=== PATIENT | female | born 1995 | race Caucasian/White ===

== ENCOUNTER 2016-08-12 02:30 | Emergency (ER) | payer OTHER ==
[2016-08-12] MEDS ORDERED: fentaNYL 100 MCG/2 ML INJ IVP ONE (02:45)
--- NOTE | 2016-08-12 02:55 | EDPHY ---
H & P Time Seen by Provider: 08/12/16 02:47 HPI/ROS: HPI Left shoulder pain. Left hip pain. 20-year-old female by private vehicle with her boyfriend. She reports that for the last week she has had spontaneous episodes of joint pain. Described as being in both hips, both shoulders, her knees and her elbows. She reports that tonight her left shoulder and her left hip have been bothering her. She describes the pain as sharp and intense and sudden-onset then it dies down to a dull ache and then subsides and then repeats. She denies any history of trauma. She does not have any history of autoimmune disease. She denies camping or being in the bush and possible tick exposure. No fever. She has a appointment with her primary care physician at [facility] tomorrow regarding this complaint. ROS: Constitutional: No fever, no chills. No weakness. Eyes: No discharge. No changes in vision. ENT: No sore throat. No nasal congestion or rhinorrhea. Respiratory: No cough. No shortness of breath. Cardiac: No chest pain, no palpitations. Gastrointestinal: No abdominal pain, no vomiting, no diarrhea. Genitourinary: No hematuria. No dysuria or increased frequency with urination. Musculoskeletal: No back pain. No neck pain. As above. Skin: No rashes. Neurological: No headache. No focal weakness or altered sensation. Past medical history: Panic attacks for which she takes alprazolam. Exercise- induced asthma, tonsillectomy, yeast infection. Primary care is through [facility]. Social history: Here with her boyfriend. No alcohol. She denies smoking. Physical Exam: General Appearance: Alert, emotionally labile. This patient is responding to questions appropriately and in full sentences. This patient appears well- hydrated and well-nourished. Eyes: Pupils equal and round no pallor or injection. No lid edema, erythema or injection. Respiratory: There are no retractions, lungs are clear to auscultation with good air movement bilaterally. Cardiovascular: Regular rate and rhythm. No murmur. Gastrointestinal: Abdomen is soft and nontender, no masses, bowel sounds normal. No focal tenderness at McBurney's point. No Charles sign. Neurological: Motor sensory function is grossly intact. Cranial nerves are normal. Gait is normal. Skin: Warm and dry, no rashes. No areas of erythema or warmth. No areas of ecchymosis. Musculoskeletal: Neck is supple and nontender. No midline cervical, thoracic, lumbar sacral tenderness on palpation. All joints in the right lower extremity and right upper extremity range without any pain or impingement. There is no pain elicited on axial compression of the long bones in the right upper and lower extremity. Examination of the left shoulder. She describes having some pain on the lateral aspect of the left shoulder which is mild and vague with AB duction. The glenohumeral joint integrity is intact. Left upper extremity is neurovascularly intact. There are no soft tissue changes on inspection of her shoulder. The left hip is significant for pain with passive and active flexion and extension. There is no pain on axial compression of the left hip. The left lower extremity is neurovascularly intact. Extremities are symmetrical. All joints range without pain or impingement. Psychiatric: No agitation. No depression. Database: EKG: Imaging: Left hip with AP pelvis x-ray: Negative for fracture, subluxation, dislocation. Interpreted by me. Procedures: Emergency department course: IV placed. She is asking for pain medication. She will be given 100 mcg of IV fentanyl initially. After verification of a normal creatinine. We will give her 30 mg of IV Toradol. Appropriate blood work sent. 3:15 a.m., patient re-evaluated. Comfortable at this time. No pain in ranging the left hip in flexion and extension or with axial compression. 3:45 a.m., lab work reviewed. Unremarkable. Patient reports that her pain is better but she is still having some pain. Normal creatinine. No contraindications to NSAIDs. She was given 30 mg of IV Toradol. 4:30 a.m., patient denies any significant pain. She is able to ambulate without difficulty. I feel that septic joint, tick-borne illness, traumatic injury, gout, pseudogout, spondyloarthropathy are unlikely. She feels comfortable going home and I feel she is safe for discharge. She will follow up with her primary care physician for re-evaluation tomorrow as scheduled. Return to emergency department precautions reviewed. All of her questions were answered. She was discharged from the emergency department with her boyfriend in good condition. Differential Diagnosis: The differential diagnosis on this patient includes but is not limited to psychosomatic disorder, panic attack, spondyloarthropathy, Lyme disease, other tick-borne illness, osteoarthritis. Traumatic injury unlikely. Septic joint. Monoarticular arthritis such as pseudogout gout unlikely. This represents a partial list of diagnoses considered. These considerations are based on history , physical exam, past history, reassessment and diagnostic testing. Smoking Status: Never smoked Constitutional: Initial Vital Signs Temperature (C) 36.8 C 08/12/16 02:42 Heart Rate 92 08/12/16 02:42 Respiratory Rate 16 08/12/16 02:42 Blood Pressure 134/63 H 08/12/16 02:42 O2 Sat (%) 100 08/12/16 02:42 O2 Delivery Mode Room Air O2 (L/minute) 2 Allergies/Adverse Reactions: cephalexin monohydrate [From Keflex] Allergy (Verified 08/12/16 02:41) guaifenesin [From Mucinex] Allergy (Verified 08/12/16 02:41) Penicillins Allergy (Verified 08/12/16 02:41) pseudoephedrine HCl [From Sudafed] Allergy (Verified 08/12/16 02:41) Home Medications: Medication Instructions Recorded Albuterol 5 mg/ml INH 09/20/15 MIRENA 09/20/15 Alprazolam 08/12/16 Monostat 08/12/16 Medical Decision Making - Data Points Laboratory Results: Laboratory Results 08/12/16 02:52 08/12/16 02:52 08/12/16 08/12/16 08/12/16 02:52 02:52 02:52 WBC RBC Hgb Hct MCV MCH MCHC RDW Plt Count MPV Neut % (Auto) Lymph % (Auto) [place] % (Auto) Eos % (Auto) Baso % (Auto) Nucleat RBC Rel Count Absolute Neuts (auto) Absolute Lymphs (auto) Absolute Monos (auto) Absolute Eos (auto) Absolute Basos (auto) Absolute Nucleated RBC Immature Gran % Immature Gran # ESR Sodium 139 mEq/L mEq/L (134-144) Potassium 3.7 mEq/L mEq/L (3.5-5.2) Chloride 107 mEq/L mEq/L (97-110) Carbon Dioxide 19 mEq/l L mEq/l (22-31) Anion Gap 13 mEq/L mEq/L (8-16) BUN 14 mg/dL mg/dL (7-23) Creatinine 0.8 mg/dL mg/dL (0.6-1.0) Estimated GFR > 60 Glucose 87 mg/dL mg/dL (70-100) Calcium 10.0 mg/dL mg/dL (8.5-10.4) C-Reactive Protein < 5.0 mg/L mg/L (<10.0) Beta HCG, Qual Pending Lyme Total Antibody Pending 08/12/16 02:52 WBC 7.92 10^3/uL 10^3/uL (3.80-9.50) RBC 4.73 10^6/uL 10^6/uL (4.18-5.33) Hgb 14.6 g/dL g/dL (12.6-16.3) Hct 41.1 % % (38.0-47.0) MCV 86.9 fL fL (81.5-99.8) MCH 30.9 pg pg (27.9-34.1) MCHC 35.5 g/dL g/dL (32.4-36.7) RDW 12.6 % % (11.5-15.2) Plt Count 256 10^3/uL 10^3/uL (150-400) MPV 11.5 fL fL (8.7-11.7) Neut % (Auto) 40.2 % % (39.3-74.2) Lymph % (Auto) 47.1 % H % (15.0-45.0) [place] % (Auto) 7.2 % % (4.5-13.0) Eos % (Auto) 4.4 % % (0.6-7.6) Baso % (Auto) 1.0 % % (0.3-1.7) Nucleat RBC Rel Count 0.0 % % (0.0-0.2) Absolute Neuts (auto) 3.18 10^3/uL 10^3/uL (1.70-6.50) Absolute Lymphs (auto) 3.73 10^3/uL H 10^3/uL (1.00-3.00) Absolute Monos (auto) 0.57 10^3/uL 10^3/uL (0.30-0.80) Absolute Eos (auto) 0.35 10^3/uL 10^3/uL (0.03-0.40) Absolute Basos (auto) 0.08 10^3/uL 10^3/uL (0.02-0.10) Absolute Nucleated RBC 0.00 10^3/uL 10^3/uL (0-0.01) Immature Gran % 0.1 % % (0.0-1.1) Immature Gran # 0.01 10^3/uL 10^3/uL (0.00-0.10) ESR Pending Sodium Potassium Chloride Carbon Dioxide Anion Gap BUN Creatinine Estimated GFR Glucose Calcium C-Reactive Protein Beta HCG, Qual Lyme Total Antibody Medications Given: Discontinued Medications Fentanyl (Sublimaze) 100 mcg IVP EDNOW ONE Stop: 08/12/16 02:46 Last Admin: 08/12/16 02:57 Dose: 100 mcg Departure - Departure Disposition: Home, Routine, Self-Care Clinical Impression: Joint pain, Left hip pain, Left shoulder pain Condition: Good Instructions: Hip Pain (ED), Arthralgia (ED) Additional Instructions: Read and follow provided instructions. Follow-up with your primary care physician as scheduled tomorrow for re- evaluation. Ibuprofen dosin mg every 6 hours with meals for the next 3 days only. Do not take until after 5:00 p.m. today. Return to the emergency department for worsening symptoms, fever or other serious concerns. Referrals: Radha Cancino MD [Primary Care Provider] - As per Instructions
[2016-08-12 03:29] LABS: % IMMATURE GRANULYOCYTES 0.1 % (0.0-1.1); ABSOLUTE IMMATURE GRANULOCYTES 0.01 10^3/uL (0.00-0.10); ADD DIFF? NO; ADD MORPH? NO; ADD SCAN? NO; ATYPICAL LYMPHOCYTE FLAG 0 (0-99); FRAGMENT RBC FLAG 0 (0-99); HEMATOCRIT 41.1 % (38.0-47.0); HEMOGLOBIN 14.6 g/dL (12.6-16.3); LEFT SHIFT FLG 0 (0-99); LIPEMIA HEMOLYSIS FLAG 90 (0-99); MEAN CELL HEMOGLOBIN 30.9 pg (27.9-34.1); MEAN CELL HEMOGLOBIN CONCENTR. 35.5 g/dL (32.4-36.7); MEAN CELL VOLUME 86.9 fL (81.5-99.8); MEAN PLATELET VOLUME 11.5 fL (8.7-11.7); PLATELET CLUMPS FLAG 10 (0-99); PLATELET COUNT 256 10^3/uL (150-400); RED BLOOD CELL COUNT 4.73 10^6/uL (4.18-5.33); RED CELL DISTRIBUTION WIDTH 12.6 % (11.5-15.2)
[2016-08-12 03:42] LABS: ANION GAP 13 mEq/L (8-16); C-REACTIVE PROTEIN < 5.0 mg/L (<10.0); CARBON DIOXIDE 19 mEq/l (22-31); CHLORIDE 107 mEq/L (97-110); CREATININE 0.8 mg/dL (0.6-1.0); GLOMERULAR FILTRATION RATE > 60; GLUCOSE 87 mg/dL (70-100); POTASSIUM 3.7 mEq/L (3.5-5.2); SODIUM 139 mEq/L (134-144)
[2016-08-12] MEDS ORDERED: KETOROLAC 30 MG/1 ML SDV IVP ONE (03:45)
[2016-08-12 03:52] LABS: SEDIMENTATION RATE 8 MM/HR (0-20)
[2016-08-12 04:26] VITALS: BP 105/61; PULSE 60; RESP 14; TEMP 98.6; O2SAT 99
== END 2016-08-12 04:26 | disposition home or self-care (01) ==
DX: M25.552 Pain in left hip (principal); M25.512 Pain in left shoulder; J45.909 Unspecified asthma, uncomplicated
CPT/HCPCS: 86618-90; 96374; J1885; J3010

== ENCOUNTER 2017-03-14 15:20 | Emergency (ER) | payer OTHER ==
[2017-03-14 15:50] VITALS: RESP 16; O2SAT 98
--- NOTE | 2017-03-14 17:36 | EDPHY ---
H & P Stated Complaint: HERE FOR MRI, R SIDED HEADACHE, R SHOULDER INJURY Time Seen by Provider: 03/14/17 17:21 HPI/ROS: CHIEF COMPLAINT: Headache, numbness and weakness in right fingers HISTORY OF PRESENT ILLNESS: The patient is a 21 y/o female sent here by [facility] for a headache and numbness/weakness in her right 4th and 5th digits, onset 5 days ago. She has right shoulder tendinosis and shoulder pain due to repetitive motion at work , for which she has been seen at [facility]. She has been taking steroids and anti-inflammatory for right shoulder tendinosis. For the last 2 weeks she has had a right-sided consistent mild pressure headache,that has intermittent increases in intensity. The headache is currently a 1/10 now, and is a 3/10 when the pain is the worst. On Friday, 4 days ago, she had sudden onset of right hand cramping, tingling/numbness, weakness and pain in her 4th and 5th digits. This radiated up her arm and right shoulder. She was seen at [facility] for this, which resulted in sending her to the ED because she also had a headache. She is also complaining of pain in the right side of her neck, mild right ear pain, and mild nausea. Denies hearing or vision changes , vomiting, chest pain or other pertinent symptoms. Father of leukemia; mother has pancreatitis. REVIEW OF SYSTEMS: A comprehensive 10 point review of systems is otherwise negative aside from elements mentioned in the history of present illness. PMH: Asthma, anxiety, right shoulder tendinosis SOCIAL HISTORY: Lives in [place], occasional alcohol use, non-smoker PHYSICAL EXAM: Gen: Awake, Alert, No Distress HEENT: Nose: no rhinorrhea Eyes: PERRLA, EOMI Mouth: Moist mucosa Neck: Supple, no JVD Chest: nontender, lungs clear to auscultation Heart: S1, S2 normal, no murmur Abd: Soft, non-tender, no guarding Back: no CVA tenderness, no midline tenderness Ext: no edema, non-tender Skin: no rash Neuro: CN II-XII intact. Right forehead, cheek, and shoulder weakness. Weakness of right hand with thumb and middle finger opposition. Strength 5/5 in left upper and bilateral lower extremities - Personal History LMP (Females 10-55): Over 28 Days Ago Current Tetanus Diphtheria and Acellular Pertussis (TDAP): Yes Tetanus Vaccine Date: < 10 YEARS - Medical/Surgical History Hx Asthma: Yes Hx Chronic Respiratory Disease: No Hx Diabetes: No Hx Cardiac Disease: No Hx Renal Disease: No Hx Cirrhosis: No Hx Alcoholism: No Hx HIV/AIDS: No Hx Splenectomy or Spleen Trauma: No Other PMH: tonsillectomy, asthma, yeast infection, acute anxiety disorder - Social History Smoking Status: Never smoked Constitutional: Initial Vital Signs Temperature (C) 37.1 C 03/14/17 15:47 Heart Rate 87 03/14/17 15:47 Respiratory Rate 16 03/14/17 15:47 Blood Pressure 126/86 H 03/14/17 15:47 O2 Sat (%) 98 03/14/17 15:47 Allergies/Adverse Reactions: cephalexin monohydrate [From Keflex] Allergy (Verified 08/12/16 02:41) guaifenesin [From Mucinex] Allergy (Verified 08/12/16 02:41) Penicillins Allergy (Verified 08/12/16 02:41) pseudoephedrine HCl [From Sudafed] Allergy (Verified 08/12/16 02:41) Home Medications: Medication Instructions Recorded Albuterol 5 mg/ml INH 09/20/15 MIRENA 09/20/15 Alprazolam 08/12/16 Methylprednisolone 03/14/17 Medical Decision Making - Diagnostics Imaging: Discussed imaging studies w/ call center recruiter Radiologist, I viewed and interpreted images myself ED Course/Re-evaluation: The patient is a 21 y/o female presenting with a headache and right-sided forehead, cheek, and shoulder weakness. She also has weakness of her right hand with thumb and middle finger opposition. Plan on Head MRI. 1846: Spoke with radiologist, he reports the head MRI is negative. 1847: Reassessed patient and discussed imaging findings. She will be given a neurologist followup. Return precautions provided; patient is comfortable with this plan. - Data Points Laboratory Results: Laboratory Results 03/14/17 17:50 03/14/17 17:50 Sodium 141 mEq/L mEq/L (134-144) Potassium 3.7 mEq/L mEq/L (3.5-5.2) Chloride 105 mEq/L mEq/L (97-110) Carbon Dioxide 21 mEq/l L mEq/l (22-31) Anion Gap 15 mEq/L mEq/L (8-16) BUN 14 mg/dL mg/dL (7-23) Creatinine 0.8 mg/dL mg/dL (0.6-1.0) Estimated GFR > 60 Glucose 94 mg/dL mg/dL (70-100) Calcium 9.9 mg/dL mg/dL (8.5-10.4) Total Bilirubin 0.9 mg/dL mg/dL (0.1-1.4) AST 15 IU/L IU/L (14-46) ALT 32 IU/L IU/L (9-52) Alkaline Phosphatase 52 IU/L IU/L (38-126) Total Protein 7.9 g/dL g/dL (6.3-8.2) Albumin 4.6 g/dL g/dL (3.5-5.0) Departure - Departure Disposition: Home, Routine, Self-Care Clinical Impression: Head ache Qualifiers: Headache type: unspecified Headache chronicity pattern: acute headache Intractability: not intractable Qualified Code(s): R51 - Headache Shoulder pain, right Qualifiers: Chronicity: acute Qualified Code(s): M25.511 - Pain in right shoulder Ulnar nerve impingement Qualifiers: Laterality: right Qualified Code(s): G56.21 - Lesion of ulnar nerve, right upper limb Condition: Good Instructions: General Headache (ED), Shoulder Pain (ED) Additional Instructions: Follow-up with a neurologist in the next week. Return to the emergency department immediately for recurrence of headache, nausea, vomiting, numbness, weakness, neck pain, fever or other concerns. Use Tylenol and/or ibuprofen as directed. Referrals: Radha Cancino MD [Primary Care Provider] - As per Instructions Nicola Infante MD [Medical Doctor] - As per Instructions Report Scribed for: Jaime Mendez Report Scribed by: Aailyah Blanco Date of Report: 03/14/17 Time of Report: 17:36
[2017-03-14 18:25] LABS: ALANINE AMINOTRANSFERASE 32 IU/L (9-52); ALBUMIN 4.6 g/dL (3.5-5.0); ALKALINE PHOSPHATASE 52 IU/L (38-126); ANION GAP 15 mEq/L (8-16); ASPARTATE AMINOTRANSFERASE 15 IU/L (14-46); BILIRUBIN,TOTAL 0.9 mg/dL (0.1-1.4); CALCIUM 9.9 mg/dL (8.5-10.4); CARBON DIOXIDE 21 mEq/l (22-31); CHLORIDE 105 mEq/L (97-110); CREATININE 0.8 mg/dL (0.6-1.0); GLOMERULAR FILTRATION RATE > 60; GLUCOSE 94 mg/dL (70-100); POTASSIUM 3.7 mEq/L (3.5-5.2); SODIUM 141 mEq/L (134-144); TOTAL PROTEIN 7.9 g/dL (6.3-8.2)
[2017-03-14 19:23] VITALS: BP 124/61; PULSE 60; TEMP 98.6
== END 2017-03-14 19:23 | disposition home or self-care (01) ==
DX: G56.21 Lesion of ulnar nerve, right upper limb (principal); R51 Headache; J45.909 Unspecified asthma, uncomplicated

== ENCOUNTER → 2017-06-20 | Outpatient (CLI) | payer OTHER ==
[~2017-06-20] MED LIST: GADOBUTROL 10 ML VIAL IVP ONE
== END ==
LOC: FIMAGING 08:10
PROVIDERS: ATTEND Psychiatry & Neurology Neurology
DX: R20.2 Paresthesia of skin (principal); R41.3 Other amnesia
CPT/HCPCS: A9585

== ENCOUNTER 2018-05-17 12:24 | Emergency (ER) | payer OTHER ==
[2018-05-17] MEDS ORDERED: NS 500 ML IV ONE (13:05)
[2018-05-17 13:15] LABS: PLATELET COUNT 244 10^3/uL (150-400)
--- NOTE | 2018-05-17 14:17 | EDPHY ---
H & P Time Seen by Provider: 05/17/18 13:05 HPI/ROS: HPI Chest pain. 22-year-old female by private vehicle. This patient reports that she developed chest pain which she describes as a mid substernal burning and sharp pain starting yesterday. She reports that it has been on and off in intensity. She described it as on the right side of her sternum yesterday but more on the left side today with some radiation up through her mid upper chest and into her neck. She reports she has had similar pain in the past. She has no prior history of coronary artery disease. No risk factors. She does have a history of acute anxiety disorder. ROS: Constitutional: No fever, no chills. No weakness. Eyes: No discharge. No changes in vision. ENT: No sore throat. No nasal congestion or rhinorrhea. Respiratory: No cough. No shortness of breath. Cardiac: As above, no palpitations. Gastrointestinal: No abdominal pain, no vomiting, no diarrhea. Genitourinary: No hematuria. No dysuria or increased frequency with urination. Musculoskeletal: No back pain. No neck pain. No myalgias or arthralgias. Skin: No rashes. Neurological: No headache. No focal weakness or altered sensation. Past medical history: Tonsillectomy, asthma, yeast infections, acute anxiety disorder, primary care [facility]. Social history: Nonsmoker. Here by herself. No alcohol. Physical Exam: General Appearance: Alert, no distress. This patient is responding to questions appropriately and in full sentences. This patient appears well- hydrated and well-nourished. Eyes: Pupils equal and round no pallor or injection. No lid edema, erythema or injection. Respiratory: There are no retractions, lungs are clear to auscultation with good air movement bilaterally. Cardiovascular: Regular rate and rhythm. No murmur. Gastrointestinal: Abdomen is soft and nontender, no masses, bowel sounds normal. No focal tenderness at McBurney's point. No Charles sign. Neurological: Motor sensory function is grossly intact. Cranial nerves are normal. Gait is normal. Skin: Warm and dry, no rashes. Musculoskeletal: Neck is supple and nontender. Extremities are symmetrical. All joints range without pain or impingement. Psychiatric: No agitation. No depression. Database: EKG: EKG time is 12:48 p.m.; EKG shows a narrow complex sinus tachycardia with a ventricular rate of 105. The RI, QRS, QT intervals are within normal limits. There are no ST-T wave changes indicative of ischemic or injury pattern. No evidence of right heart strain. Interpreted by me. Imaging: Chest x-ray AP portable; the cardiac mediastinal silhouette is unremarkable. No evidence of infiltrate or pneumothorax. No acute cardiopulmonary disease process noted. Interpreted by me. Procedures: Emergency department course: Triage vital signs reviewed. She is mildly hypertensive. She was mildly tachycardic in triage. On my evaluation her manager monitoring showed a narrow complex sinus rhythm with ventricular rate of 78. Based on heart score she is low risk. 2:10 p.m., the patient was re-evaluated, resting comfortably at this time. She denies any pain currently. Results of her emergency department workup discussed with her. I she feels comfortable going home and I feel she is safe for discharge at this time. Discussed her prescription medication dosing which includes alprazolam. I recommended she taken alprazolam when she got home at the dose prescribed. She feels comfortable with this plan. Follow-up and return to emergency department precautions reviewed with her. All of her questions were answered. She was discharged from the emergency department in good condition. Differential Diagnosis: The differential diagnosis on this patient includes but is not limited to costal chondritis, esophageal spasm, other noncardiac etiology of chest pain. Aortic dissection, pulmonary embolism, acute coronary syndrome, pericarditis, myocarditis, pneumonia unlikely. This represents a partial list of diagnoses considered. These considerations are based on history, physical exam, past history, reassessment and diagnostic testing. Smoking Status: Never smoked Constitutional: Initial Vital Signs Temperature (C) 36.7 C 05/17/18 12:28 Heart Rate 119 H 05/17/18 12:28 Respiratory Rate 18 05/17/18 12:28 Blood Pressure 137/99 H 05/17/18 12:28 O2 Sat (%) 100 05/17/18 12:28 O2 Delivery Mode Room Air Allergies/Adverse Reactions: cephalexin monohydrate [From Keflex] Allergy (Verified 08/12/16 02:41) guaifenesin [From Mucinex] Allergy (Verified 08/12/16 02:41) Penicillins Allergy (Verified 08/12/16 02:41) pseudoephedrine HCl [From Sudafed] Allergy (Verified 08/12/16 02:41) Home Medications: Medication Instructions Recorded Albuterol 5 mg/ml INH 09/20/15 MIRENA 09/20/15 Alprazolam 08/12/16 Nortriptyline HCl 05/17/18 Medical Decision Making - Diagnostics Imaging Results: Imaging Impressions Chest X-Ray 05/17/18 13:05 Impression: Negative frontal chest radiograph. - Data Points Laboratory Results: Laboratory Results 05/17/18 12:40 05/17/18 12:40 05/17/18 05/17/18 05/17/18 13:15 12:44 12:40 WBC RBC Hgb Hct MCV MCH MCHC RDW Plt Count MPV Neut % (Auto) Lymph % (Auto) [place] % (Auto) Eos % (Auto) Baso % (Auto) Nucleat RBC Rel Count Absolute Neuts (auto) Absolute Lymphs (auto) Absolute Monos (auto) Absolute Eos (auto) Absolute Basos (auto) Absolute Nucleated RBC Immature Gran % Immature Gran # D-Dimer < 0.27 ug/mLFEU ug/mLFEU (0.00-0.50) Sodium Potassium Chloride Carbon Dioxide Anion Gap BUN Creatinine Estimated GFR Glucose Calcium POC Troponin I 0.00 ng/mL ng/mL (0.00-0.08) Beta HCG, Qual NEGATIVE 05/17/18 05/17/18 12:40 12:40 WBC 5.32 10^3/uL 10^3/uL (3.80-9.50) RBC 4.64 10^6/uL 10^6/uL (4.18-5.33) Hgb 14.8 g/dL g/dL (12.6-16.3) Hct 42.9 % % (38.0-47.0) MCV 92.5 fL fL (81.5-99.8) MCH 31.9 pg pg (27.9-34.1) MCHC 34.5 g/dL g/dL (32.4-36.7) RDW 11.8 % % (11.5-15.2) Plt Count 244 10^3/uL 10^3/uL (150-400) MPV 11.2 fL fL (8.7-11.7) Neut % (Auto) 43.2 % % (39.3-74.2) Lymph % (Auto) 39.5 % % (15.0-45.0) [place] % (Auto) 9.2 % % (4.5-13.0) Eos % (Auto) 6.8 % % (0.6-7.6) Baso % (Auto) 1.1 % % (0.3-1.7) Nucleat RBC Rel Count 0.0 % % (0.0-0.2) Absolute Neuts (auto) 2.30 10^3/uL 10^3/uL (1.70-6.50) Absolute Lymphs (auto) 2.10 10^3/uL 10^3/uL (1.00-3.00) Absolute Monos (auto) 0.49 10^3/uL 10^3/uL (0.30-0.80) Absolute Eos (auto) 0.36 10^3/uL 10^3/uL (0.03-0.40) Absolute Basos (auto) 0.06 10^3/uL 10^3/uL (0.02-0.10) Absolute Nucleated RBC 0.00 10^3/uL 10^3/uL (0-0.01) Immature Gran % 0.2 % % (0.0-1.1) Immature Gran # 0.01 10^3/uL 10^3/uL (0.00-0.10) D-Dimer Sodium 139 mEq/L mEq/L (135-145) Potassium 3.8 mEq/L mEq/L (3.5-5.2) Chloride 107 mEq/L mEq/L (97-110) Carbon Dioxide 22 mEq/l mEq/l (22-31) Anion Gap 10 mEq/L mEq/L (6-14) BUN 13 mg/dL mg/dL (7-23) Creatinine 0.9 mg/dL mg/dL (0.6-1.0) Estimated GFR > 60 Glucose 99 mg/dL mg/dL (70-100) Calcium 9.5 mg/dL mg/dL (8.5-10.4) POC Troponin I Beta HCG, Qual Medications Given: Discontinued Medications Sodium Chloride (Ns) 500 mls @ 1,000 mls/hr IV EDNOW ONE PRN Reason: Protocol Stop: 05/17/18 13:34 Last Admin: 05/17/18 13:15 Dose: 500 mls Point of Care Test Results: Chemistry 05/17/18 12:44 POC Troponin I 0.00 ng/mL ng/mL (0.00-0.08) Departure - Departure Disposition: Home, Routine, Self-Care Clinical Impression: Chest discomfort Condition: Good Instructions: Chest Pain (ED) Additional Instructions: Read and follow provided instructions. Follow-up with your primary care physician in 1-2 days for re-evaluation as discussed. Take your medication as prescribed. You can take a dose of alprazolam as prescribed when you get home. Ibuprofen dosin mg every 6 hours with meals for the next 3 days only. Take only as needed for pain. Return to the emergency department for worsening symptoms, worsening chest pain , shortness of breath or other serious concerns. Referrals: Radha Cancino MD [Primary Care Provider] - As per Instructions Stand Alone Forms: Work Excuse
--- NOTE | 2018-05-17 14:18 | CPEKG ---
Test Reason : OPEN Blood Pressure : / mmHG Vent. Rate : 105 BPM Atrial Rate : 112 BPM P-R Int : 154 ms QRS Dur : 096 ms QT Int : 344 ms P-R-T Axes : 063 059 034 degrees QTc Int : 455 ms Fast sinus arrhythmia Confirmed by Sohan Cm ([id number]) on 05/17/2018 2:18:09 PM Referred By: Confirmed By:Sohan Cm
[2018-05-17 14:33] VITALS: BP 114/67
== END 2018-05-17 14:33 | disposition home or self-care (01) ==
DX: R07.9 Chest pain, unspecified (principal); E86.9 Volume depletion, unspecified
CPT/HCPCS: 84484-PO

== ENCOUNTER → 2018-09-02 | Outpatient (CLI) | payer OTHER | LOC: FIMAGING 08:28 | DX: R10.9 Unspecified abdominal pain (principal) ==